=== PATIENT | male | born 1960 | race Caucasian/White ===

== ENCOUNTER 2018-07-29 11:15 | Outpatient (CLI) | payer OTHER | END 2018-07-29 11:16 | disposition home or self-care (01) | LOC: SC 11:15 | PROVIDERS: ATTEND Internal Medicine Pulmonary Disease | DX: G47.33 Obstructive sleep apnea (adult) (pediatric) (principal) | CPT/HCPCS: 99203; 99212 ==

== ENCOUNTER 2018-09-09 06:49 | Day surgery (SDC) | payer OTHER ==
[2018-09-09] MEDS ORDERED: LACTATED RINGERS 1,000 ML IV ONE (07:30)
[2018-09-09] MEDS ORDERED: MIDAZOLAM 2 MG/2 ML VIAL IVP ONE (08:23)
[2018-09-09] MEDS ORDERED: fentaNYL 250 MCG/5 ML VIAL IVP ONE (08:23)
[2018-09-09 09:01] VITALS: BP 109/55
== END 2018-09-09 06:50 | disposition home or self-care (01) ==
LOC: SDS 06:49
PROVIDERS: ATTEND Surgery
PROC: 0DBL8ZZ Excision of Transverse Colon, Via Natural or Artificial Opening Endoscopic (ICD-10-PCS; 2018-09-09)
PROC: 0DBM8ZZ Excision of Descending Colon, Via Natural or Artificial Opening Endoscopic (ICD-10-PCS; principal; 2018-09-09 08:15)
DX: Z12.11 Encounter for screening for malignant neoplasm of colon (principal); D12.4 Benign neoplasm of descending colon; D12.3 Benign neoplasm of transverse colon; K57.30 Diverticulosis of large intestine without perforation or abscess without bleeding; Q27.33 Arteriovenous malformation of digestive system vessel; K64.8 Other hemorrhoids; I10 Essential (primary) hypertension; G47.30 Sleep apnea, unspecified; E78.5 Hyperlipidemia, unspecified; E66.9 Obesity, unspecified; Z68.35 Body mass index [BMI] 35.0-35.9, adult; E11.9 Type 2 diabetes mellitus without complications; Z87.891 Personal history of nicotine dependence
CPT/HCPCS: 45380; J3010; J7120

== ENCOUNTER 2018-10-14 09:08 | Outpatient (CLI) | payer OTHER | END 2018-10-14 09:09 | disposition home or self-care (01) | LOC: SC 09:08 | PROVIDERS: ATTEND Internal Medicine Pulmonary Disease | DX: G47.33 Obstructive sleep apnea (adult) (pediatric) (principal) | CPT/HCPCS: 99212; 99213 ==

== ENCOUNTER 2018-10-15 19:32 | Outpatient (CLI) | payer OTHER | END 2018-10-15 19:33 | disposition home or self-care (01) | LOC: SC 19:32 | PROVIDERS: ATTEND Internal Medicine Pulmonary Disease | DX: G47.33 Obstructive sleep apnea (adult) (pediatric) (principal) | CPT/HCPCS: 95810 ==

== ENCOUNTER 2018-10-22 15:11 | Outpatient (CLI) | payer OTHER | END 2018-10-22 15:12 | disposition home or self-care (01) | LOC: SC 15:11 | PROVIDERS: ATTEND Nurse Practitioner Family | DX: G47.33 Obstructive sleep apnea (adult) (pediatric) (principal) | CPT/HCPCS: 99212; 99214 ==

== ENCOUNTER 2018-12-10 14:30 | Outpatient (CLI) | payer OTHER | END 2018-12-10 14:31 | disposition home or self-care (01) | LOC: SC 14:30 | PROVIDERS: ATTEND Nurse Practitioner Family | DX: G47.33 Obstructive sleep apnea (adult) (pediatric) (principal) | CPT/HCPCS: 99212; 99214 ==

== ENCOUNTER 2020-06-25 11:15 | Outpatient (CLI) | payer OTHER ==
--- NOTE | 2020-06-25 11:53 | SLEEP CARE CONSULTATION ---
Information from patient questionnaire entered by Susan Murrieta. I have reviewed and concur with the information entered by Susan Murrieta. This document represents the service I personally performed and the decisions made by , Dominga Zamora ARNP. History of Present Illness Service Date and Time: 06/25/2020 1115 Previous diagnosis: Severe, Obstructive Sleep Apnea-Hypopnea Syndrome AHI: 50.2 Reason for follow up: annual Equipment type: CPAP Equipment obtained from: [facility] (not able to get supplies) Mask style: Nasal pillows Backup mask available: No (keep a mask once able to replace) Last cushion change: 2 months ago Prior sleep studies: Yes Year and Where: 2018 [facility] Type of Sleep Study: Polysomnography HPI additional information: SILVESTRE OLGUIN was diagnosed to have severe, AHI 50.2, obstructive sleep apnea-hypopnea syndrome and returned today for CPAP therapy annual follow-up. CPAP Compliance Data - Data Reviewed with Patient Average duration of nightly device use: 7 h 33 min Compliance rate %: 98.9 Current pressure setting (cmH2O): 8-10 Humidity settin Heated hose settin Average residual AHI: 2.5 Average large leak: 1 min 9 sec Subjective Patient concerns: reports: other (Need new supplies). denies: aerophagia, mask discomfort, air blowing in eyes, mask leak noise, condensation in mask/hose, na mahesh congestion, dry mouth, nose, throat, epistaxis Observed to snore while using device: No (will if he is on his back) Current pressure setting perceived as: comfortable On therapy, patient: reports: sleeping better, awakening more refreshed, being more awake and alert during the day, more rested overall. denies: drowsiness while driving Initial [place] Sleepiness Scale score: 11 (in 2018) Current [place] Sleepiness Scale score: 6 Allergies and Home Medications Drug allergies reviewed: Yes (NKDA) Home medication list reviewed: Yes (no changes) Review of Systems Review of systems same as previous: Yes (no changes) Physical Exam Heart Rate: 75 O2 Saturation: 97 Height: 5 ft 7 in Weight: 224 lb Body Mass Index: 35.0 BMI Classification: Obese Impression and Plan 1. Obstructive Sleep Apnea-Hypopnea Syndrome, severe, with good treatment compliance and good apnea control. On CPAP therapy, the patient has better sleep quality and is more rested overall. Patient only complaint is that he wants to sleep on his back but when he tries he starts snoring/choking and it wakes him up. He turns on his side and is able to go right to sleep. He would like to have the pressure increased to see if this will allow him to lay on his back to sleep. I will increase his pressure to 8-12 cm H2O. I instructed him to notify me if he has aerophagia or the pressure feels too high. He voiced understanding. He needs to change to a new DME supplier because his current one is no longer able to supply them and he states he has not been able to get supplies from them for several months. Patient was advised that another DME can be used. I will have my warehouse logistics coordinator inform of DME options. A DWO prescription will then be made. Patient advised to contact this office if further supply problems. Patient's apnea severity and rationale for treatment to reduce apnea, improve sleep quality and reduce cardiovascular and cerebrovascular events was reviewed. I also reviewed the benefit of consistent device use of CPAP for hypertension, diabetes, anddepression/anxiety. * Transfer DME and update supplies * Change autoCPAP pressure to 8-12 cmH2O * Notify me if snoring with mask or feeling that the pressure is too much or too little * Attempt to lose weight * Call this office if any problems using CPAP * Return for follow up in 1 year, or sooner if concerns arise Visit Type: In Office Time Spent with Patient (minutes): 20 Provider Statement: I spent 100% of the Face to Face Visit with the patient with greater than 50% spent counseling the patient and coordination of care.
== END 2020-06-25 11:16 | disposition home or self-care (01) ==
LOC: SC 11:15
PROVIDERS: ATTEND Nurse Practitioner Family
DX: G47.33 Obstructive sleep apnea (adult) (pediatric) (principal); E66.9 Obesity, unspecified; Z68.35 Body mass index [BMI] 35.0-35.9, adult
CPT/HCPCS: 99212; 99213

== ENCOUNTER 2021-06-09 10:39 | Outpatient (CLI) | payer OTHER ==
--- NOTE | 2021-06-09 11:23 | SLEEP CARE CONSULTATION ---
Information from patient questionnaire entered by Franchesca Danielle. I have reviewed and concur with the information entered by Franchesca Danielle. This document represents the service I personally performed and the decisions made by , Dominga Zamora ARNP. History of Present Illness Service Date and Time: 06/09/2021 1039 Previous diagnosis: Severe, Obstructive Sleep Apnea-Hypopnea Syndrome AHI: 50.2 (in 2019) Reason for follow up: annual (last seen 06/2020) Equipment type: CPAP Equipment obtained from: [employer] (getting supplies as needed) Mask style: Nasal pillows Mask brand: Resmed Backup mask available: Yes (old mask) Last cushion change: 1 week Prior sleep studies: Yes Year and Where: 2019 - [facility] Type of Sleep Study: Polysomnography HPI additional information: SILVESTRE OLGUIN was diagnosed to have severe, AHI 50.2, obstructive sleep apnea-hypopnea syndrome and returned today for CPAP therapy annual follow-up. CPAP Compliance Data - Data Reviewed with Patient Average duration of nightly device use: 7 hr 20 min Compliance rate %: 100 (180 days) Current pressure setting (cmH2O): 8-12 Humidity settin Heated hose settin Average residual AHI: 1.9 Average large leak: 2 min 28 sec Subjective Patient concerns: reports: mask discomfort. denies: aerophagia, air blowing in eyes, mask leak noise, condensation in mask/hose, nasal congestion, dry mouth, nose, throat, epistaxis, other Observed to snore while using device: No Current pressure setting perceived as: comfortable On therapy, patient: reports: sleeping better, awakening more refreshed, being more awake and alert during the day, more rested overall. denies: drowsiness while driving Initial [place] Sleepiness Scale score: 11 (in 2018) Current [place] Sleepiness Scale score: 0 Allergies and Home Medications Home medication list reviewed: Yes (no changes) Review of Systems Review of systems same as previous: Yes (no changes) Physical Exam Heart Rate: 83 O2 Saturation: 97 Height: 5 ft 7 in Weight: 222 lb Body Mass Index: 34.7 BMI Classification: Obese Impression and Plan 1. Obstructive Sleep Apnea-Hypopnea Syndrome, severe, with excellent treatment compliance and good apnea control. On CPAP therapy, the patient has better sleep quality and is more rested overall. Patient has been having problem with his headgear riding up on his cheek and pushing on side of eye. He would like to try a different headgear with a nasal pillows mask. I will write for a mask refitting. I informed the patient that [employer] has a recall on several devices like the patients machine. Patient was encouraged to register their device online with [employer] for the recall to see if their device is affected. If their device is affected they should start a claim. Patient denies any black particles seen in machine or hoses, any unusual odors coming from device. Patient has not experienced any physical symptoms such as u pper airway irritation, headache, skin or eye irritation, asthma, nausea/vomiting, difficulty breathing or chest pain. Patient informed that they may use an inline CPAP filter that they can obtain online to reduce chance of any particles being inhaled or ingested. We discussed thoroughly the health risks of not using the CPAP versus continuing use with the filter in place. If patient is not able to sleep due to waking up choking, gasping for air or other respiratory distress that they may decide to continue using it until it is either replaced or repaired. Patient voiced understanding and agreement with plan. Patient is about to go to [facility] for work and will be gone for about 1 year. He would like to try to get a battery powered CPAP to travel with. I explained that his insurance may not pay for this and he voiced understanding. I will write a prescription for a travel APAP for him to try to get one before he leaves. Patient's apnea severity and rationale for treatment to reduce apnea, improve sleep quality and reduce cardiovascular and cerebrovascular events was reviewed. I also reviewed the benefit of consistent device use of CPAP for hypertension, diabetes, and depression/anxiety. * Continue auto CPAP pressure at 8-12 cmH2O * Mask refitting * Portable device prescription. * Notify me if snoring with mask or feeling that the pressure is too much or too little * Attempt to lose weight * Call this office if any problems using CPAP * Return for follow up in 1 year, or sooner if concerns arise Counseling Topics: Spare mask, Weight loss health impact Visit Type: In Office Time Spent with Patient (minutes): 23 Provider Statement: I spent 100% of the Face to Face Visit with the patient with greater than 50% spent counseling the patient and coordination of care.
== END 2021-06-09 10:40 | disposition home or self-care (01) ==
LOC: SC 10:39
PROVIDERS: ATTEND Nurse Practitioner Family
DX: G47.33 Obstructive sleep apnea (adult) (pediatric) (principal); E66.9 Obesity, unspecified; Z68.34 Body mass index [BMI] 34.0-34.9, adult
CPT/HCPCS: 99212; 99213

== ENCOUNTER 2023-12-20 09:56 | Outpatient (CLI) | payer OTHER ==
--- NOTE | 2023-12-20 10:34 | Sleep Patient Instructions ---
Sleep Center Visit Summary - Patient Visit Information Reason for Visit: Annual follow-up - Patient Instructions Additional Instructions: You will continue with CPAP therapy with pressure set at 8-12 cmH2O. A supply prescription will be updated with your DME. I have added a new CPAP to your prescription. Please call to set up a compliance follow up once you get your new CPAP. We encourage you to continue to try to lose weight. Please follow up with the sleep care office one month after obtaining new machine. - Clinic Information Contact: [facility] [address] [place] [email or web address] T: [phone]
--- NOTE | 2023-12-20 10:37 | SLEEP CARE CONSULTATION ---
Information from patient questionnaire entered by Soha Crystal. I have reviewed and concur with the information entered by Soha Crsytal. This document represents the service I personally performed and the decisions made by me, Dominga Zamora ARNP. History of Present Illness Service Date and Time: 12/20/2023 0956 Previous diagnosis: Severe, Obstructive Sleep Apnea-Hypopnea Syndrome AHI: 50.2 (in 2019) Reason for follow up: annual (LAST SEEN 06/2021) Equipment type: CPAP ([employer] Dreamstation; MACHINE NEEDED) Equipment obtained from: [employer] (getting supplies as needed) Mask style: Nasal pillows Backup mask available: Yes Last cushion change: 1 month Prior sleep studies: Yes Year and Where: 2018 - [facility] Type of Sleep Study: Polysomnography HPI additional information: SILVESTRE OLGUIN was diagnosed to have severe, AHI 50.2, obstructive sleep apnea-hypopnea syndrome and returned today for CPAP therapy annual follow-up. Sleep Study - Results Type of Sleep Study: Polysomnography Prior sleep studies: Yes Year and Where: 2018 - [facility] CPAP Compliance Data - Data Reviewed with Patient Average duration of nightly device use: 7 hours 17 mins Compliance rate %: 99.4 (180/180 days used; 06/23/23-12/19/23) Current pressure setting (cmH2O): 8-12 Average residual AHI: 2.1 Average large leak: 52 secs Subjective Patient concerns: reports: other (pressure pulsating). denies: aerophagia, mask discomfort, air blowing in eyes, mask leak noise, condensation in mask/hose, nasal congestion, dry mouth, nose, throat, epistaxis Observed to snore while using device: No Current pressure setting perceived as: comfortable On therapy, patient: reports: sleeping better, awakening more refreshed, being more awake and alert during the day, more rested overall. denies: drowsiness while driving Initial [place] Sleepiness Scale score: 11 (in 2018) Current [place] Sleepiness Scale score: 2 Allergies and Home Medications Known drug allergies: No Drug allergies reviewed: Yes Home medication list reviewed: Yes (no changes) Allergy and home medication list: Allergies No Known Drug Allergies Allergy (Verified 12/19/23 16:04) Review of Systems Review of systems same as previous: Yes (no changes) Physical Exam Vital signs obtained and entered by: DOMINGA BECERRA-Martha Blood Pressure: 153/81 Cuff size: regular (left arm) Heart Rate: 78 O2 Saturation: 97 Height: 5 ft 7 in Weight: 211 lb Weight change since last visit: 11 lb loss Body Mass Index: 33.0 BMI Classification: Obese Impression and Plan 1. Obstructive Sleep Apnea-Hypopnea Syndrome, severe, with good treatment compliance and good apnea control. On CPAP therapy, the patient has better sleep quality and is more rested overall. He has a Dreamstation that was set up 11/08/2018 and is now having a pulsating pressure feeling for patient. He says it have not been replaced by [employer]. The patients CPAP is over 5 years old and of reasonable use. Thus, the CPAP will be updated. A DWO prescription will be made. Compliance guidelines for new device and follow up discussed. Patient's apnea severity and rationale for treatment to reduce apnea, improve sleep quality and reduce cardiovascular and cerebrovascular events was reviewed. I also reviewed the benefit of consistent device use of CPAP for hypertension, diabetes, depression/anxiety. 2. Obesity, unspecified. Currently patients BMI is 33. He has lost weight. Obesity increases the risk of apnea, CPAP pressure requirements and overall health risks especially cardiovascular and diabetes. Thus patient is advised to continue to try to lose weight. * Continue auto CPAP pressure at 8-12 cmH2O * Update machine * Update supply prescription * Notify me if snoring with mask or feeling that the pressure is too much or too little * Attempt to lose weight * Call this office if any problems using CPAP * Return for follow up one month after obtaining new machine, or sooner if concerns arise Counseling Topics: Spare mask, Weight loss health impact Prescriptions: Auto CPAP, Device supplies Visit Type: In Office Time Spent with Patient (minutes): 21 Provider Statement: I spent 100% of the Face to Face Visit with the patient with greater than 50% spent counseling the patient and coordination of care.
[2023-12-20 10:44] VITALS: BP 153/81; O2SAT 97
== END 2023-12-20 09:57 | disposition home or self-care (01) ==
LOC: SC 09:56
PROVIDERS: ATTEND Nurse Practitioner Family
DX: G47.33 Obstructive sleep apnea (adult) (pediatric) (principal); E66.9 Obesity, unspecified; Z68.33 Body mass index [BMI] 33.0-33.9, adult
CPT/HCPCS: 99212; 99213

== ENCOUNTER 2024-04-29 08:06 | Outpatient (CLI) | payer OTHER ==
--- NOTE | 2024-04-29 08:37 | Sleep Patient Instructions ---
Sleep Center Visit Summary - Patient Visit Information Reason for Visit: First compliance with new device - Patient Instructions Additional Instructions: You were here for follow up of CPAP therapy. You will be continued on CPAP therapy with pressure at 8-12 cmH2O. You should follow up with sleep care in 12 months. You may contact us sooner for any questions or concerns. - Clinic Information Contact: [facility] [address] [place] [address] [email or web address] T: [phone]
--- NOTE | 2024-04-29 08:40 | SLEEP CARE CONSULTATION ---
Information from patient questionnaire entered by Juan Carlos Crystal. I have reviewed and concur with the information entered by Juan Carlos Crystal. This document represents the service I personally performed and the decisions made by me, Dominga Zamora ARNP. History of Present Illness Service Date and Time: 04/29/2024 08 Previous diagnosis: Severe, Obstructive Sleep Apnea-Hypopnea Syndrome AHI: 50.2 (in 2019) Reason for follow up: first compliance after device update Equipment type: CPAP (RESMED 11 S/U 02/26/24) Equipment obtained from: Other ([employer]; getting supplies as needed) Mask style: Nasal pillows Mask brand: Resmed ([id number]) Backup mask available: No Last cushion change: 1 week Prior sleep studies: Yes Year and Where: 2018 - [facility] Type of Sleep Study: Polysomnography HPI additional information: SILVESTRE OLGUIN was diagnosed to have severe, AHI 50.2, obstructive sleep apnea-hypopnea syndrome and returned today for CPAP therapy first compliance after updating device follow-up. Sleep Study - Results Type of Sleep Study: Polysomnography Prior sleep studies: Yes Year and Where: 2018 - [facility] CPAP Compliance Data - Data Reviewed with Patient Average duration of nightly device use: 7 HRS 18 MINS Compliance rate %: 97 (02/26/24-03/26/24; 29/30 days used; 100% in last 30 days) Current pressure setting (cmH2O): 8-12 Average residual AHI: 2.6 Central apnea: 0.5 Obstructive apnea: 1.3 Average large leak: 5.3 L/min Subjective Patient concerns: reports: dry mouth, nose, throat (dry mouth; improved with chinstrap). denies: aerophagia, mask discomfort, air blowing in eyes, mask leak noise, condensation in mask/hose, nasal congestion, epistaxis Observed to snore while using device: No Current pressure setting perceived as: comfortable On therapy, patient: reports: sleeping better, awakening more refreshed, being more awake and alert during the day, more rested overall. denies: drowsiness while driving Initial [place] Sleepiness Scale score: 11 (in 2018) Current [place] Sleepiness Scale score: 2 (04/29/24) Allergies and Home Medications Known drug allergies: No Drug allergies reviewed: Yes Home medication list reviewed: Yes (no changes) Allergy and home medication list: Allergies No Known Drug Allergies Allergy (Verified 04/29/24 08:14) Review of Systems Review of systems same as previous: Yes (NO CHANGE) Physical Exam Vital signs obtained and entered by: JUAN CARLOS Thomas MA Blood Pressure: 128/75 (RIGHT ARM) Cuff size: regular Heart Rate: 69 O2 Saturation: 98 Height: 5 ft 7 in Weight: 198 lb 3.2 oz Body Mass Index: 31.0 BMI Classification: Obese Impression and Plan 1. Obstructive Sleep Apnea-Hypopnea Syndrome, severe, with good treatment compliance and good apnea control. On CPAP therapy, the patient has better sleep quality and is more rested overall. He has significant improvement of his sleep apnea and is satisfied with current CPAP therapy. He still gets some dry mouth but with use of the chinstrap has reduced it by 90%. He states he is moving within the next 6 months to [place] permanently. We discussed those things he will need to do to establish with a sleep provider there. He voiced understanding and was given office information, phone number and fax number. Patient's apnea severity and rationale for treatment to reduce apnea, improve sleep quality and reduce cardiovascular and cerebrovascular events was reviewed. I also reviewed the benefit of consistent device use of CPAP for hypertension, diabetes, depression/anxiety. 2. Obesity, unspecified. Currently patients BMI is 31. Obesity increases the risk of apnea, CPAP pressure requirements and overall health risks especially cardiovascular and diabetes. Thus patient is advised to lose weight. * Continue auto CPAP pressure at 8-12 cmH2O * Notify me if snoring with mask or feeling that the pressure is too much or too little * Attempt to lose weight * Call this office if any problems using CPAP * Return for follow up in 12 months, or sooner if concerns arise Counseling Topics: Spare mask, Weight loss health impact Follow up with Sleep Care in: 1 year Visit Type: In Office Time Spent with Patient (minutes): 12 Provider Statement: I spent 100% of the Face to Face Visit with the patient with greater than 50% spent counseling the patient and coordination of care.
[2024-04-29 08:51] VITALS: BP 128/75; O2SAT 98
== END 2024-04-29 08:07 | disposition home or self-care (01) ==
LOC: SC 08:06
PROVIDERS: ATTEND Nurse Practitioner Family
DX: G47.33 Obstructive sleep apnea (adult) (pediatric) (principal); E66.9 Obesity, unspecified; Z68.31 Body mass index [BMI] 31.0-31.9, adult
CPT/HCPCS: 99212